=== PATIENT | male | born 1960 | race Caucasian/White ===

== ENCOUNTER 2016-10-17 07:34 | Day surgery (SDC) | payer OTHER ==
[2016-10-17] VITALS (16 sets, daily range): BP systolic 116–145; BP diastolic 58–88; PULSE 70–85; RESP 13–25
[~2016-10-17] VITALS: Ht 182.9 cm; Wt 93.0 kg
[~2016-10-17 07:34] MED LIST: ATOR20TA38 PO; CEFAZOLIN 1 GM INJ ONE; CEFAZOLIN 2 GM/50 ML (PMX) 50 ML IVPB SCH; CLOP75TA4 PO; CYAN100T PO; FERR325C PO; LIDOCAINE 2% (SDV) 5 ML INJ ONE; LISI2.5T59 PO; METO-448 PO; NIT4 SL; PANT40TA4 PO; PROPOFOL 200 MG INJ ONE; ROCURONIUM 50 MG INJ ONE; SOD CHLORIDE 0.9% 1,000 ML IV ONE; SUCCINYLCHOLINE CHLORIDE 100 MG/5 ML SYG IV ONE; TRAZ50TA18 PO
[2016-10-17] MEDS ORDERED: ISOS30TA5 PO (09:23)
[2016-10-17] MEDS ORDERED: FENO48TA4 PO (09:23)
--- NOTE | 2016-10-17 09:32 | RADRPT ---
PROCEDURE: XR Chest. CLINICAL INDICATION: Preoperative, ventral hernia TECHNIQUE: Single frontal view of the chest was obtained COMPARISON: None FINDINGS: The heart is normal in size. The patient is status post sternotomy. There is mild right lower lobe linear atelectasis. The lungs are otherwise clear. There is no pleural effusion or pneumothorax. RPTAT: AA IMPRESSION: No acute disease. .Mark Arevalo MD, MD Date Time Electronically viewed and signed by .Mark Arevalo MD, on 10/17/2016 09:32 .S/
[2016-10-17 09:38] LABS: BASOPHILS % 0.4 % (0.0-2.0); EOSINOPHILS # 0.2 10^3/ul (0.0-0.5); EOSINOPHILS % 2.4 % (0.0-7.0); HEMATOCRIT 43.6 % (42.0-52.0); LYMPHOCYTES # 1.4 10^3/ul (0.8-2.9); LYMPHOCYTES % 15.7 % (15.0-51.0); MEAN CORPUSCULAR HEMOGLOBIN 21.4 pg (29.0-33.0); MEAN CORPUSCULAR HGB CONC 32.2 g/dl (32.0-37.0); MEAN CORPUSCULAR VOLUME 66.3 fl (82.0-101.0); MEAN PLATELET VOLUME 8.8 fl (7.4-10.4); MONOCYTE # 0.6 10^3/ul (0.3-0.9); NEUTROPHIL # 6.5 10^3/ul (1.6-7.5); NEUTROPHILS % 74.5 % (39.0-77.0); PLATELET COUNT 148 10^3/UL (140-440); RED BLOOD COUNT 6.57 10^6/ul (4.70-6.10); RED CELL DISTRIBUTION WIDTH 16.6 % (11.5-14.5); UNCORRECTED WBC 8.8 10^3/ul (4.8-10.8); WHITE BLOOD COUNT 8.8 10^3/ul (4.8-10.8)
[2016-10-17 09:41] LABS: CONDITION 1; LH ANALYZER COMMENTS 1
[2016-10-17 09:48] LABS: PROTIME 13.2 Sec (12.2-14.2)
[2016-10-17 09:49] LABS: PARTIAL THROMBOPLASTIN TIME 26.7 Sec (25.0-35.0)
[2016-10-17 10:08] LABS: CALCIUM 9.2 mg/dl (8.4-10.2); CREATININE 0.97 mg/dl (0.61-1.24); POTASSIUM 4.7 mmol/L (3.5-5.1)
[2016-10-17] MEDS ORDERED: BUPIVACAINE 0.25% (MPF) 30 ML INJ ONE (10:13)
[2016-10-17] MEDS ORDERED: FENTAnyl 50 MCG/ML VIAL ONE (10:41)
[2016-10-17] MEDS ORDERED: BUPIVACAINE 0.25% (MPF) 30 ML INJ INJ ONE (10:55)
[2016-10-17] MEDS ORDERED: POLYMYXIN/BACITRACIN 1L IRRIG IRR ONE (10:55)
[2016-10-17] MEDS ORDERED: DIPHENHYDRAMINE 50 MG INJ IV PRN ×2 (11:30→13:00)
[2016-10-17] MEDS ORDERED: ONDANSETRON 4 MG INJ IV PRN ×2 (11:30→13:00)
[2016-10-17] MEDS ORDERED: FENTAnyl 50 MCG/ML VIAL IV PRN ×3 (11:30→13:00)
[2016-10-17] MEDS ORDERED: HYDROmorphONE (0.2 MG/ML) 10ML SYG IV PRN ×5 (11:30→13:00)
[2016-10-17] MEDS ORDERED: METOCLOPRAMIDE 10 MG INJ IV PRN ×2 (11:30→13:00)
[2016-10-17] MEDS ORDERED: MEPERIDINE 25 MG INJ IV PRN ×2 (11:30→13:00)
[2016-10-17] MEDS ORDERED: HYDROCODONE/APAP (5/325) TAB PO ONE (12:00)
[2016-10-17] MEDS: HYDROmorphONE (0.2 MG/ML) 10ML SYG IV PRN ×2 (12:16→12:22)
[2016-10-17] MEDS: FENTAnyl 50 MCG/ML VIAL IV PRN ×2 (12:17→12:23)
--- NOTE | 2016-10-17 14:14 | OPR ---
DATE OF OPERATION: 10/17/2016 INDICATION: This is a 56-year-old male with a right inguinal hernia. He requests surgical repair. Risks, alternatives, benefits, and personnel were discussed with the patient. The patient expresse d his understanding and consents to the operation. PREOPERATIVE DIAGNOSIS: Right inguinal hernia. POSTOPERATIVE DIAGNOSIS: Right inguinal hernia. OPERATION: Open right inguinal hernia repair with a large size Ultrapro hernia system mesh. SURGEON: David Carias MD COMPLICATIONS: None. ANESTHESIA: General. DESCRIPTION OF PROCEDURE: The patient was taken to the OR and prepped and draped in the usual steri le fashion. A surgical time out was performed. IV antibiotics were given. Oblique incision is mad e in the right inguinal region with a 10 blade. Dissection cautery was carried down to the external oblique fascia which was opened with a 15 blade. This incision is extended medial inferiorly and l ateral superiorly with Metzenbaum scissors. Cord structures are encircled with a Gamal drain. Th e direct hernia was identified. This area was bolstered with the disk portion of the Ultrapro herni a system mesh with a running 0 Prolene from the pubic tubercle along the shelving edge of the inguin al ligament and superiorly to the internal oblique with interrupted 3-0 Vicryl. Onlay mesh is secur ed in a similar fashion with a running 0 Prolene from the pubic tubercle along the shelving edge of the inguinal ligament. Straps are created and reapproximated with interrupted 0 Prolene to recreate the inguinal ring. Onlay mesh was secured to the internal oblique with interrupted 3-0 Vicryl. Ex ternal oblique fascia was closed with a running 3-0 Vicryl. Kristin's was closed with interrupted 3- 0 Vicryl. Skin was closed using skin yan. Local anesthesia was injected and dressings were gregorio lied. Dictated By: DAVID ATKINSON/DENNIS Conf#: [id number] DID#: [id number]
== END 2016-10-17 14:25 | disposition home or self-care (01) ==
LOC: SDS 07:34
PROVIDERS: ATTEND Surgery
DX: K40.90 Unilateral inguinal hernia, without obstruction or gangrene, not specified as recurrent (principal); I25.10 Atherosclerotic heart disease of native coronary artery without angina pectoris; Z95.1 Presence of aortocoronary bypass graft
CPT/HCPCS: 49505; 71010; 80048; 85025; 85610; 85730; C1781; J0330; J0690; J1170; J1200; J2175; J2405; J3010; Z7512; Z7610